=== PATIENT | female | born 1965 | race Caucasian/White ===

== ENCOUNTER → 2017-10-24 | Emergency (ER) | payer OTHER ==
[~2017-10-24] VITALS: Ht 160 cm; Wt 56.7 kg
[~2017-10-24] MED LIST: TDAP [DIPH/PERTUSSIS/TET] 0.5 ML VIAL IM ONE
--- NOTE | 2017-10-24 03:30 | NUR ---
TO BED 2 A 52 YO FEMALE PT BIB SELF, PT C/O LAC ON 2ND LEFT FINGER X 1.5 HOURS. NAD NOTED. VSS. INTACT DISTAL CMS. INITIAL WOUND CARE DONE. COMFORT MEASURES RENDERED.
--- NOTE | 2017-10-24 03:34 | NUR ---
XRAY AT BEDSIDE
--- NOTE | 2017-10-24 04:15 | NUR ---
DR BAKER AT BEDSIDE TO SUTURE LACERATION.
--- NOTE | 2017-10-24 04:30 | NUR ---
Dressing applied, clean and intact. Finger splint applied, intact cms post application.
[2017-10-24 04:36] VITALS: BP 138/74
--- NOTE | 2017-10-24 04:37 | NUR ---
Patient discharged to home in stable condition. Written and verbal after care instructions given. Patient verbalizes understanding of instruction. Patient is ambulatory with steady gait, no further complaints.
== END | disposition home or self-care (01) ==
LOC: ER 03:07
DX: S62.631A Displaced fracture of distal phalanx of left index finger, initial encounter for closed fracture (principal); S61.211A Laceration without foreign body of left index finger without damage to nail, initial encounter; Z23 Encounter for immunization; Z88.2 Allergy status to sulfonamides; Z88.5 Allergy status to narcotic agent; Z88.1 Allergy status to other antibiotic agents; Z88.8 Allergy status to other drugs, medicaments and biological substances; W25.XXXA Contact with sharp glass, initial encounter; Y93.89 Activity, other specified; Y92.89 Other specified places as the place of occurrence of the external cause; Y99.8 Other external cause status
CPT/HCPCS: 12001; 73120; 90471; 90715; 99284; A4606; A6402 ×2; Z7610